=== PATIENT | female | born 1990 | race Caucasian/White ===

== ENCOUNTER 2017-05-27 05:22 | Inpatient (IN) | payer MEDICAID ==
[~2017-05-27] VITALS: Ht 175.3 cm; Wt 97.5 kg
[2017-05-27] MEDS ORDERED: DEXT 5%/LR + PITOCIN 20UNITS/L 1,000 ML IV SCH (05:41)
[2017-05-27] MEDS ORDERED: CARBOPROST TROMETHAMINE 250 MCG/ML AMPUL IM PRN (05:45)
[2017-05-27] MEDS ORDERED: NALOXONE HCL 0.4 MG/ML 1ML VIAL IM PRN (05:45)
[2017-05-27] MEDS ORDERED: METHYLERGONOVINE MALEATE 0.2 MG/ML IM PRN (05:45)
[2017-05-27] MEDS ORDERED: PNV1TABL76 PO (06:22)
[2017-05-27] MEDS ORDERED: FOLI-43 PO (06:22)
[2017-05-27] MEDS ORDERED: ASPI-1159 PO (06:22)
[2017-05-27] MEDS: LACTATED RINGERS 1,000 ML IV SCH ×3 (06:30→08:25)
[2017-05-27 06:38] LABS: BASOPHILS % 0.2 % (0.0-2.0); EOSINOPHILS % 0.6 % (0.0-5.0); HEMATOCRIT. 38.5 % (36.0-48.0); HEMOGLOBIN. 13.2 g/dL (12.0-16.0); LYMPHOCYTES % 28.8 % (20.0-50.0); MEAN CORPUSCULAR HEMOGLOBIN 31.2 pg (28.0-32.0); MEAN CORPUSCULAR VOLUME 91.1 fL (81.0-99.0); MEAN PLATELET VOLUME 9.2 fl (7.4-10.4); MONOCYTES % 6.6 % (2.0-8.0); NEUTROPHILS % 63.8 % (40.0-76.0); PLATELET 211 x1000/uL (130-400); RED BLOOD CELL COUNT 4.23 mill/uL (4.2-5.4); RED CELL DISTRIBUTION WIDTH 13.9 % (11.6-14.6)
[2017-05-27 06:45] LABS: INR 0.9; PARTIAL THROMBOPLASTIN TIME 25.1 sec (23.4-31.0); PROTHROMBIN TIME 9.6 sec (9.4-11.6)
[2017-05-27 07:23] LABS: CLARITY URINE CLOUDY (CLEAR); COLOR URINE YELLOW (YELLOW); KETONES URINE NEGATIVE (NEGATIVE); LEUKOCYTE ESTERASE URINE NEGATIVE (NEGATIVE); NITRITE URINE NEGATIVE (NEGATIVE); OCCULT BLOOD URINE NEGATIVE (NEGATIVE); PROTEIN URINE NEGATIVE (NEGATIVE); SPECIFIC GRAVITY URINE 1.027 (1.005-1.030)
[2017-05-27 07:43] LABS: CHLORIDE 108 mEq/L (98-107)
[2017-05-27] MEDS ORDERED: CITRIC ACID/SODIUM CITRATE SOLN 30ML UDC PO NR (08:30)
[2017-05-27] MEDS ORDERED: MORPHINE SULFATE/PF 1MG/ML 10ML AMP ONE (08:39)
[2017-05-27] MEDS ORDERED: SODIUM CHLORIDE 0.9% 10ML VIAL ONE ×2 (08:43→09:22)
[2017-05-27] MEDS ORDERED: EPHEDRINE SULFATE 50MG/ML VIAL ONE (08:43)
[2017-05-27 08:46] LABS: CARBON DIOXIDE 18 mEq/L (21-32)
[2017-05-27 09:08] LABS: *AMPHETAMINES SCREEN URINE NEGATIVE (NEGATIVE); *BARBITURATES SCREEN URINE NEGATIVE (NEGATIVE); *BENZODIAZEPINES SCREEN URINE NEGATIVE (NEGATIVE); *COCAINE SCREEN URINE NEGATIVE (NEGATIVE); CANNABINOID URINE SCREEN NEGATIVE (NEGATIVE); METHADONE URINE SCREEN NEGATIVE (NEGATIVE); OPIATES URINE SCREEN NEGATIVE (NEGATIVE); PHENCYCLIDINE URINE SCREEN NEGATIVE (NEGATIVE)
[2017-05-27] MEDS ORDERED: OXYTOCIN 10 UNITS/ML 1ML ONE (09:14)
[2017-05-27] MEDS ORDERED: ONDANSETRON HCL 4MG/2ML VIAL ONE (09:15)
[2017-05-27] MEDS ORDERED: METOCLOPRAMIDE HCL 10MG/2ML VIAL ONE (09:15)
[2017-05-27] MEDS ORDERED: CEFAZOLIN SODIUM 1000MG/VIAL ONE (09:22)
[2017-05-27] MEDS ORDERED: MIDAZOLAM HCL 2 MG/2 ML VIAL ONE (09:42)
[2017-05-27] MEDS ORDERED: DIPHENHYDRAMINE 25MG CAPSULE PO PRN (10:00)
[2017-05-27] MEDS ORDERED: RHO(D) IMMUNE GLOBULIN 300 MCG/SYR IM PRN (10:00)
[2017-05-27] MEDS ORDERED: BISACODYL 10MG SUPP PR PRN (10:00)
[2017-05-27] MEDS ORDERED: HYDROCODONE/ACETAMINOPHEN 5/325MG TABLET PO PRN (10:00)
[2017-05-27] MEDS ORDERED: ONDANSETRON HCL 4MG/2ML VIAL IV PRN (10:00)
[2017-05-27] MEDS ORDERED: LACTATED RINGERS 1,000 ML IV SCH (10:30)
[2017-05-27 12:05] LABS: HEPATITIS B SURFACE ANTIGEN NEGATIVE; RUBELLA IGG 28.9 IU/mL (4.99-10)
[2017-05-27] MEDS: DEXT 5%/LR + PITOCIN 20UNITS/L 1,000 ML IV SCH ×2 (12:25→23:09)
[2017-05-27 12:50] VITALS: BP 116/77
[2017-05-27 13:20] VITALS: BP 114/72
[2017-05-27] MEDS: KETOROLAC 30MG/ML VIAL IV PRN ×2 (14:13→20:47)
[2017-05-27 14:20] VITALS: BP 109/74
[2017-05-27 16:00] VITALS: BP 108/59
[2017-05-27 20:00] VITALS: BP 98/58
[2017-05-27] MEDS: LANOLIN OINT 0.25 GM TUBE TOP PRN (20:00)
[2017-05-28] MEDS: KETOROLAC 30MG/ML VIAL IV PRN (02:50)
[2017-05-28 06:45] VITALS: BP 101/62
[2017-05-28 07:17] LABS: BASOPHILS % 0.3 % (0.0-2.0); EOSINOPHILS % 0.5 % (0.0-5.0); HEMATOCRIT. 33.9 % (36.0-48.0); HEMOGLOBIN. 11.7 g/dL (12.0-16.0); LYMPHOCYTES % 16.5 % (20.0-50.0); MEAN CORPUSCULAR HEMOGLOBIN 31.4 pg (28.0-32.0); MEAN CORPUSCULAR VOLUME 91.2 fL (81.0-99.0); MONOCYTES % 9.1 % (2.0-8.0); NEUTROPHILS % 73.6 % (40.0-76.0); PLATELET 172 x1000/uL (130-400); RED BLOOD CELL COUNT 3.72 mill/uL (4.2-5.4); RED CELL DISTRIBUTION WIDTH 13.7 % (11.6-14.6)
[2017-05-28 08:10] VITALS: BP 100/60
[2017-05-28] MEDS: IBUPROFEN 400MG TABLET PO PRN (08:11)
[2017-05-28] MEDS: PRENATAL VIT/FE FUMARATE/FA TABLET PO SCH (08:12)
[2017-05-28] MEDS: DEXT 5%/LR + PITOCIN 20UNITS/L 1,000 ML IV SCH (09:52)
[2017-05-28 16:14] VITALS: BP 117/74
[2017-05-28] MEDS: HYDROCODONE/ACETAMINOPHEN 5/325MG TABLET PO PRN ×2 (16:53→22:11)
[2017-05-28 20:00] VITALS: BP 114/72
[2017-05-29] MEDS: HYDROCODONE/ACETAMINOPHEN 5/325MG TABLET PO PRN ×3 (05:47→19:40)
[2017-05-29 06:27] VITALS: BP 128/76
[2017-05-29] MEDS: IBUPROFEN 800MG TABLET PO PRN ×2 (07:52→16:42)
[2017-05-29 08:00] VITALS: BP 113/78
[2017-05-29 12:00] VITALS: BP 125/78
[2017-05-29] MEDS: PRENATAL VIT/FE FUMARATE/FA TABLET PO SCH (16:20)
[2017-05-29 16:37] VITALS: BP 116/77
[2017-05-29 20:00] VITALS: BP 120/75
[2017-05-30] MEDS: LANOLIN OINT 0.25 GM TUBE TOP PRN (05:39)
[2017-05-30] MEDS: IBUPROFEN 400MG TABLET PO PRN (05:39)
[2017-05-30 06:36] VITALS: BP 106/78
[2017-05-30 13:32] VITALS: BP 106/78
[2017-05-30] MEDS: HYDROCODONE/ACETAMINOPHEN 5/325MG TABLET PO PRN (13:32)
== END 2017-05-30 14:30 | disposition home or self-care (01) | DRG 540 ==
LOC: OBSVTOIN 05:22 → L&D 05:22 → 7EST PP/OB 12:40
PROVIDERS: ADMIT Obstetrics & Gynecology; ATTEND Obstetrics & Gynecology
PROC: 10D00Z1 Extraction of Products of Conception, Low, Open Approach (ICD-10-PCS; principal; 2017-05-29)
DX: O34.211 Maternal care for low transverse scar from previous cesarean delivery (principal); Z37.0 Single live birth; Z3A.39 39 weeks gestation of pregnancy
CPT/HCPCS: 36415; 80053; 80305; 81001; 84550; 85025; 85384; 85610; 85730; 86592; 86703; 86762; 86850; 86900; 87086; 87340; 88307; A4216; J0171; J0690; J1885; J2250; J2274; J2405; J2590; J2765; J7120; A4315